=== PATIENT | male | born 1955 | race Two or more races ===

== ENCOUNTER 2020-06-26 06:41 | Emergency (ER) | payer BC, MEDICAID, MEDICARE, SELFPAY ==
[~2020-06-26] VITALS: Ht 167.6 cm; Wt 91.0 kg
[2020-06-26 06:46] VITALS: BP 146/73
--- NOTE | 2020-06-26 07:11 | NUR ---
patient arrives with right sided kidney flank pain. it began a week ago bilaterally, but last few days is just right sided flank pain. patient has colostomy and cancer colon history.
[2020-06-26] MEDS ORDERED: DOXA4TAB3 PO (07:16)
[2020-06-26] MEDS ORDERED: TAMS-11 PO (07:16)
[2020-06-26] MEDS ORDERED: HYDROcodone/APAP 5/325 TABLET PO ONE (07:30)
[2020-06-26] MEDS ORDERED: METHOCARBAMOL 750 MG TABLET PO ONE (07:30)
--- NOTE | 2020-06-26 07:36 | NUR ---
PT DROVE HERE, SO NOT WANTING TO TAKE NARCS FOR PAIN SECONDARY TO DRIVING HOME, LET MD KNOW.
[2020-06-26 07:41] LABS: MICROSCOPIC INDICATED
[2020-06-26 08:16] LABS: BASOPHILS % (AUTO) 1 % (0-1); EOSINOPHILS % (AUTO) 2 % (1-7); LYMPHOCYTES % (AUTO) 18 % (22-44); MEAN CORPUSCULAR HGB CONC 35.2 g/dL (33.2-36.2); MEAN PLATELET VOLUME 8.3 fL (7.4-10.4); MONOCYTES % (AUTO) 9 % (2-9); NEUTROPHILS % (AUTO) 70 % (42-75); PLATELET COUNT 284 x10^3/uL (130-400); RED BLOOD COUNT 4.47 x10^6/uL (4.38-5.82); RED CELL DISTRIBUTION WIDTH 13.6 % (9.4-14.8)
[2020-06-26 08:22] LABS: MD NO
[2020-06-26 08:29] LABS: ANION GAP 3 mmol/L (5-15); CALCIUM 9.5 mg/dL (8.5-10.1); CHLORIDE 110 mmol/L (98-107)
[2020-06-26 08:32] LABS: CREATININE 0.91 mg/dL (0.7-1.3)
[2020-06-26] MEDS ORDERED: KETOROLAC 30 MG/1 ML ONE (08:50)
[2020-06-26] MEDS ORDERED: KETOROLAC 30 MG/1 ML IM ONE (09:00)
== END 2020-06-26 09:06 | disposition home or self-care (01) ==
LOC: ED 08:46
DX: M51.36 Other intervertebral disc degeneration, lumbar region (principal); I10 Essential (primary) hypertension
CPT/HCPCS: 36415; 72110; 80048; 81001; 85025; 87086; 96372; 99284; J1885